=== PATIENT | female | born 1970 | race Caucasian/White ===

== ENCOUNTER 2023-05-17 08:19 | Day surgery (SDC) | payer MEDICARE ==
[2023-05-17] MEDS ORDERED: Depo-Medrol 40 MG/ML IM ONE (08:20)
[2023-05-17] MEDS ORDERED: XYLOCAINE-MPF 1% 5ML SDV IJ ONE (08:20)
[2023-05-17] MEDS ORDERED: Sodium Chloride 0.9(Preservative Free) 10 ML IJ ONE (08:20)
[2023-05-17] MEDS ORDERED: DIPRIVAN 200 MG/20 ML IV ONE ×2 (10:08→10:17)
[2023-05-17] MEDS ORDERED: Lactated Ringers 1,000 ML IV ONE (11:51)
--- NOTE | 2023-05-17 12:02 | XRAY ---
Indication: Lumbar YIN. Intraoperative fluoroscopy provided for 28 seconds. 3 digital spot images submitted for interpretation demonstrates posterior needle tip projecting posterior to the last lumbar segment. Small amount of contrast injected for needle tip basement. Correlate with intraoperative findings/report.
--- NOTE | 2023-05-17 12:21 | XRAY ---
28 seconds of fluoroscopy was used in surgery for a lumbar YIN.
== END 2023-05-17 10:45 | disposition home or self-care (01) ==
LOC: SDC-PAIN 08:19
PROVIDERS: ATTEND Psychiatry & Neurology Pain Medicine
DX: M54.16 Radiculopathy, lumbar region (principal); E11.9 Type 2 diabetes mellitus without complications
CPT/HCPCS: 62323; 72100; 77003; 82947; J1030; J2704; Q9966

== ENCOUNTER 2023-07-12 09:47 | Day surgery (SDC) | payer MEDICARE ==
[2023-07-12] MEDS ORDERED: LIDOCAINE HCL 2% 100 MG/5 ML IJ ONE (09:48)
[2023-07-12] MEDS ORDERED: Depo-Medrol 40 MG/ML IM ONE (09:48)
[2023-07-12] MEDS ORDERED: DIPRIVAN 200 MG/20 ML IV ONE (11:59)
[2023-07-12] MEDS ORDERED: Xylocaine-Mpf 2% 5 Ml Vial ONE (12:01)
--- NOTE | 2023-07-12 12:57 | XRAY ---
Indication: Bilateral L4-S1 MBB. Intraoperative fluoroscopy provided for 17 seconds. Single digital spot image submitted for interpretation demonstrates posterior needle tips projecting over the expected left and right L4-S1 nerve roots. Correlate with intraoperative findings/report.
--- NOTE | 2023-07-12 13:21 | XRAY ---
17 seconds of fluoroscopy was used in surgery for a bilateral L4-S1 MBB.
[2023-07-12] MEDS ORDERED: Lactated Ringers 1,000 ML IV ONE (14:19)
== END 2023-07-12 12:30 | disposition home or self-care (01) ==
LOC: SDC-PAIN 09:47
PROVIDERS: ATTEND Psychiatry & Neurology Pain Medicine
DX: M47.816 Spondylosis without myelopathy or radiculopathy, lumbar region (principal); E11.9 Type 2 diabetes mellitus without complications
CPT/HCPCS: 64493; 64494; 72020; 77002; 82947; J1010; J2704

== ENCOUNTER 2023-09-06 10:48 | Day surgery (SDC) | payer MEDICARE ==
[2023-09-06] MEDS ORDERED: BUPIVACAINE 0.5% VIAL IJ ONE (10:49)
[2023-09-06] MEDS ORDERED: Depo-Medrol 40 MG/ML IM ONE (10:49)
[2023-09-06] MEDS ORDERED: Lactated Ringers 1,000 ML IV ONE (12:17)
[2023-09-06] MEDS ORDERED: DIPRIVAN 200 MG/20 ML IV ONE (12:44)
--- NOTE | 2023-09-06 14:49 | XRAY ---
Indication: Bilateral L4-S1 MBB. Intraoperative fluoroscopy provided for 12 seconds. Single digital spot image submitted for interpretation demonstrates posterior needle tips projecting over the expected left and right L4-S1 nerve roots. Correlate with intraoperative findings/report.
--- NOTE | 2023-09-06 15:19 | XRAY ---
12 seconds of fluoroscopy was used in surgery for a bilateral L4-S1 MBB.
== END 2023-09-06 13:28 | disposition home or self-care (01) ==
LOC: SDC-PAIN 10:48
PROVIDERS: ATTEND Psychiatry & Neurology Pain Medicine
DX: M47.816 Spondylosis without myelopathy or radiculopathy, lumbar region (principal); E11.9 Type 2 diabetes mellitus without complications
CPT/HCPCS: 64493; 64494; 72020; 77002; 82947; J1010; J2704

== ENCOUNTER 2023-10-18 07:24 | Day surgery (SDC) | payer MEDICARE ==
[2023-10-18] MEDS ORDERED: LIDOCAINE HCL 1% 50 MG/5 ML VL PF IJ ONE (07:25)
[2023-10-18] MEDS ORDERED: BUPIVACAINE 0.5% VIAL IJ ONE (07:25)
[2023-10-18] MEDS ORDERED: Depo-Medrol 40 MG/ML IM ONE (07:25)
[2023-10-18] MEDS ORDERED: DIPRIVAN 200 MG/20 ML IV ONE (09:09)
[2023-10-18] MEDS ORDERED: TRANDATE 20 MG/4 ML SYRINGE IV ONE (09:41)
--- NOTE | 2023-10-18 10:19 | XRAY ---
Indication: Right L4-S1 RFA. Intraoperative fluoroscopy provided for 22 seconds. 5 digital spot image submitted for interpretation demonstrates posterior needle tips projecting over the expected right L4-S1 nerve roots. Correlate with intraoperative findings/report.
--- NOTE | 2023-10-18 10:26 | XRAY ---
22 seconds of fluoroscopy was used in surgery for a right L4-S1 RFA.
[2023-10-18] MEDS ORDERED: Lactated Ringers 1,000 ML IV ONE (14:58)
== END 2023-10-18 10:16 | disposition home or self-care (01) ==
LOC: SDC-PAIN 07:24
PROVIDERS: ATTEND Psychiatry & Neurology Pain Medicine
DX: M47.816 Spondylosis without myelopathy or radiculopathy, lumbar region (principal)
CPT/HCPCS: 64635; 64636; 72100; 77002; 82947; J2001; J2704

== ENCOUNTER 2023-10-25 07:20 | Day surgery (SDC) | payer MEDICARE ==
[2023-10-25] MEDS ORDERED: BUPIVACAINE 0.5% VIAL IJ ONE (07:21)
[2023-10-25] MEDS ORDERED: Depo-Medrol 40 MG/ML IM ONE (07:21)
[2023-10-25] MEDS ORDERED: LIDOCAINE HCL 1% 50 MG/5 ML VL PF IJ ONE (07:21)
[2023-10-25] MEDS ORDERED: DIPRIVAN 200 MG/20 ML IV ONE (08:12)
[2023-10-25] MEDS ORDERED: Xylocaine-Mpf 2% 5 Ml Vial ONE (08:12)
[2023-10-25] MEDS ORDERED: Lactated Ringers 1,000 ML IV ONE (09:17)
--- NOTE | 2023-10-25 10:53 | XRAY ---
Indication: Left L4-S1 RFA. Intraoperative fluoroscopy provided for 24 seconds. 4 digital spot images submitted for interpretation demonstrates posterior needle tips projecting over the expected left L4-S1 nerve roots. Correlate with intraoperative findings/report.
--- NOTE | 2023-10-25 10:57 | XRAY ---
24 seconds of fluoroscopy was used in surgery for a left L4-S1 RFA.
== END 2023-10-25 08:47 ==
LOC: SDC-PAIN 07:20
PROVIDERS: ATTEND Psychiatry & Neurology Pain Medicine
DX: M47.816 Spondylosis without myelopathy or radiculopathy, lumbar region (principal); E11.9 Type 2 diabetes mellitus without complications
CPT/HCPCS: 64635; 64636; 72100; 77002; 82947; J2001; J2704

== ENCOUNTER 2024-04-24 07:59 | Day surgery (SDC) | payer MEDICARE ==
[2024-04-24] MEDS ORDERED: Depo-Medrol 40 MG/ML IM ONE (08:00)
[2024-04-24] MEDS ORDERED: BUPIVACAINE 0.5% VIAL IJ ONE (08:00)
[2024-04-24] MEDS ORDERED: propofoL IV ONE (09:34)
[2024-04-24] MEDS ORDERED: Xylocaine-Mpf 2% 5 Ml Vial ONE (09:36)
--- NOTE | 2024-04-24 11:26 | XRAY ---
Indication: Bilateral SI joint injection. Intraoperative fluoroscopy provided for 14 seconds. 2 digital spot image submitted for interpretation demonstrates posterior needle tips projecting over expected left and right SI joints. Small amount of contrast injected for needle tip placement. Correlate with intraoperative findings/report.
--- NOTE | 2024-04-24 12:02 | XRAY ---
14 seconds of fluoroscopy was used in surgery for a bilateral sacroiliac joint injection.
== END 2024-04-24 10:07 | disposition home or self-care (01) ==
LOC: SDC-PAIN 07:59
PROVIDERS: ATTEND Psychiatry & Neurology Pain Medicine
DX: M46.1 Sacroiliitis, not elsewhere classified (principal); E11.9 Type 2 diabetes mellitus without complications
CPT/HCPCS: 72202; 77002; 82947; J2704

== ENCOUNTER 2024-07-03 09:29 | Day surgery (SDC) | payer MEDICARE ==
[2024-07-03] MEDS ORDERED: dexAMETHasone sodium phosphate IJ ONE (09:30)
[2024-07-03] MEDS ORDERED: LIDOCAINE HCL 2% 100 MG/5 ML IJ ONE (09:30)
[2024-07-03] MEDS ORDERED: Lactated Ringers 500 ML IV ONE (09:36)
[2024-07-03] MEDS ORDERED: propofoL IV ONE (11:13)
--- NOTE | 2024-07-03 13:11 | XRAY ---
Indication: Right C2-C4 MBB. Intraoperative fluoroscopy provided for 20 seconds. 3 digital spot image submitted for interpretation demonstrates posterior needle tips projecting over expected right C2-C4 nerve roots. Correlate with intraoperative findings/report.
--- NOTE | 2024-07-03 13:15 | XRAY ---
20 seconds of fluoroscopy was used in surgery for a right C2-C4 MBB.
== END 2024-07-03 11:40 | disposition home or self-care (01) ==
LOC: SDC-PAIN 09:29
PROVIDERS: ATTEND Psychiatry & Neurology Pain Medicine
DX: M47.812 Spondylosis without myelopathy or radiculopathy, cervical region (principal); E11.9 Type 2 diabetes mellitus without complications
CPT/HCPCS: 64490; 64491; 72040; 82947; J1100; J2704

== ENCOUNTER 2024-07-25 07:53 | Day surgery (SDC) | payer MEDICARE ==
[2024-07-25] MEDS ORDERED: dexAMETHasone sodium phosphate IJ ONE (07:54)
[2024-07-25] MEDS ORDERED: BUPIVACAINE 0.5% VIAL IJ ONE (07:54)
[2024-07-25] MEDS ORDERED: propofoL IV ONE (10:07)
[2024-07-25] MEDS ORDERED: Lactated Ringers 1,000 ML IV ONE (10:27)
--- NOTE | 2024-07-25 11:50 | XRAY ---
Indication: Right C2-C4 MBB. Intraoperative fluoroscopy provided for 17 seconds. 3 digital spot image submitted for interpretation demonstrates posterior needle tips projecting over expected right C2-C4 nerve roots. Correlate with intraoperative findings/report.
--- NOTE | 2024-07-25 12:22 | XRAY ---
17 seconds of fluoroscopy was used in surgery for a right C2-C4 MBB.
== END 2024-07-25 10:50 | disposition home or self-care (01) ==
LOC: SDC-PAIN 07:53
PROVIDERS: ATTEND Psychiatry & Neurology Pain Medicine
DX: M47.812 Spondylosis without myelopathy or radiculopathy, cervical region (principal); E11.9 Type 2 diabetes mellitus without complications
CPT/HCPCS: 64490; 64491; 72040; 82947; J1100; J2704